=== PATIENT | male | born 1945 | race Hispanic/Latino ===

== ENCOUNTER 2019-02-11 06:30 | Day surgery (SDC) | payer OTHER ==
[2019-02-10 11:34] LABS: BASOPHILS % (AUTO) 0.5 % (0.0-5.0); EOSINOPHILS % (AUTO) 2.8 % (0.0-8.0); HEMATOCRIT 38.9 % (42-54); LYMPHOCYTES % (AUTO) 23.7 % (21.0-51.0); MEAN CORPUSCULAR HEMOGLOBIN 30.3 pg (27.0-33.0); MEAN CORPUSCULAR HGB CONC 33.4 g/dL (32.0-36.0); MEAN CORPUSCULAR VOLUME 90.8 fL (79-99); MONOCYTES % (AUTO) 8.4 % (3.0-13.0); NEUTROPHILS % (AUTO) 64.6 % (40.0-77.0); PLATELET COUNT (AUTO) 142 K/uL (130-400); RED BLOOD CELL COUNT(AUTO) 4.28 MIL/uL (4.50-6.20); RED CELL DISTRIBUTION WIDTH 13.4 % (11.0-15.5); WHITE BLOOD COUNT (AUTO) 4.8 K/uL (4.8-10.8)
[2019-02-10 11:41] LABS: CREATININE 1.3 mg/dL (0.5-1.5); POTASSIUM 4.3 mmol/L (3.5-5.1)
[2019-02-10 11:45] VITALS: BP 160/60
[2019-02-11] VITALS (14 sets, daily range): BP systolic 124–172; BP diastolic 55–77
[~2019-02-11] VITALS: Ht 177.8 cm; Wt 77.5 kg
[~2019-02-11 06:30] MED LIST: ASPI-555 PO; GABA300S PO; GLIP-162 PO; LINA5TAB PO; LISI10TA7 PO; SIMV40TA59 PO; TOPI50TA24 PO
[2019-02-11] MEDS ORDERED: SODIUM CHLORIDE 0.9% 1000ML 1,000 ML IV ONE (07:04)
[2019-02-11] MEDS: CEFTRIAXONE SODIUM 1 GM IVP ONE ×2 (07:34→09:50)
[2019-02-11] MEDS ORDERED: MIDAZOLAM HCL 1 MG/ML 2ML VIAL ONE ×2 (09:14→09:44)
[2019-02-11] MEDS ORDERED: PROPOFOL 10 MG/ML 20ML VIAL IV ONE ×3 (09:14→10:06)
[2019-02-11] MEDS ORDERED: DEXAMETHASONE SOD PHOSPHATE 10MG/ML 1ML VIAL ONE ×2 (09:14→09:44)
[2019-02-11] MEDS ORDERED: LIDOCAINE PF 2% 5ML ABBOJECT ONE ×2 (09:14→09:44)
[2019-02-11] MEDS ORDERED: FENTANYL CITRATE PF 50 MCG/1 ML 2ML VIAL ONE ×2 (09:15→09:45)
[2019-02-11] MEDS ORDERED: ONDANSETRON HCL 4 MG/2 ML VIAL ONE ×2 (09:15→09:45)
--- NOTE | 2019-02-11 11:10 | NUR ---
POST OP S/P CYSTOSCOPY, [address] IN PLACE DRAINING PINK COLOR URINE, DRESSIG TO PENIS DRY AND INTACT, LEG BAG APPLIED AT THIS TIME, PT INSTRUCTED TO F/C CARE. PT STATES HAS HAD " FC IN THE PAST". SPOUSE AT BEDSIDE. VS STABLE. PT DENIES ANY PAIN OR DISCOMFORTS
[2019-02-11] MEDS ORDERED: PHENAZOPYRIDINE HCL 200 MG TABLET ONE (11:29)
--- NOTE | 2019-02-11 11:45 | NUR ---
DC PT DC HOME VIA WC,NO DISTRESS NOTED, ACCOMPANIED BY SPOUSE, [address] IN PLACE.LEG BAG IN PLACE, URINE CLEAR PINK IN COLOR, PT DENIES ANY PAIN OR DISCOMFORTS. DRESSING TO PENIS DRY AND INTANT,
== END 2019-02-11 11:45 | disposition home or self-care (01) ==
LOC: DAH 06:30
PROVIDERS: ATTEND Urology
DX: N32.0 Bladder-neck obstruction (principal); N35.819 Other urethral stricture, male, unspecified site; I12.9 Hypertensive chronic kidney disease with stage 1 through stage 4 chronic kidney disease, or unspecified chronic kidney disease; E11.22 Type 2 diabetes mellitus with diabetic chronic kidney disease; N18.9 Chronic kidney disease, unspecified; E11.40 Type 2 diabetes mellitus with diabetic neuropathy, unspecified; E66.9 Obesity, unspecified
CPT/HCPCS: 36415; 52276; 80048; 82948 ×2; 85025; 93005; A4218; A4314; A4354; A4358; A4510; A4600; J0696; J1100 ×2; J2001 ×2; J2250 ×2; J2405 ×2; J2704 ×3; J3010 ×2; J7030